=== PATIENT | male | born 1955 | race Caucasian/White ===

== ENCOUNTER → 2018-03-11 | Outpatient (CLI) | payer BC ==
[~2018-03-11] MED LIST: ADDERALL 10 MG10 MG PO; PRILOSEC 20 MG20 MG PO
[2018-03-11 10:15] VITALS: BP 121/69
[2018-03-11 11:20] VITALS: BP 120/72
== END ==
LOC: OPONC 08:00
DX: D50.9 Iron deficiency anemia, unspecified (principal)
CPT/HCPCS: 95000

== ENCOUNTER → 2018-03-13 | Outpatient (CLI) | payer BC ==
[2018-03-13 11:10] VITALS: BP 120/74
[2018-03-13 12:00] VITALS: BP 130/79
== END ==
LOC: OPONC 00:43
DX: D50.9 Iron deficiency anemia, unspecified (principal)
CPT/HCPCS: 95000

== ENCOUNTER → 2018-03-19 | Outpatient (CLI) | payer BC ==
[2018-03-19 12:10] VITALS: BP 121/73
--- NOTE | 2018-03-19 12:30 | NUR ---
PT IN FOR FINAL IRON INFUSION. REPORTS DOING WELL, TOLERATING IRON INFUSIONS WELL EXCEPT FOR HEADACHE THAT FOLLOWS INFUSION FOR A FEW HOURS. PLANS TO TAKE IBUPROFEN TODAY FOR THIS (HELD IT LAST WEEK D/T UPCOMING HAND SURGERY). REPORTS LESS CRAVINGS TO CHEW ICE SO FEELS THE IRON IS WORKING. TOLERATED TODAY'S INFUSION WELL. WILL F/U WITH DR. CHANEL FOR FUTURE MANAGEMENT.
--- NOTE | 2018-04-11 17:20 | NUR ---
LATE NOTE: PATIENT IN FOR IRON SUCROSE INFUSION ON 03/19/18. INFUSION START TIME: 1202. STOP TIME: 1230.
== END ==
LOC: OPONC 00:21
DX: D50.9 Iron deficiency anemia, unspecified (principal)
CPT/HCPCS: 95000

== ENCOUNTER → 2020-07-07 | Outpatient (CLI) | payer OTHER ==
[~2020-07-07] MED LIST changes: +FLOMAX0.4 MG PO
[2020-07-07 13:45] VITALS: BP 131/84
[2020-07-07 14:10] VITALS: BP 138/80
--- NOTE | 2020-07-07 16:17 | NUR ---
HERE FOR FIRST OF 5 DOSES OF VENOFER. STATES HAS BEEN HAVING SOME DIZZINESS AND VERTIGO FOR WHICH HE IS BEING WORKED UP FOR. HAS HAD VENOFER INFUSIONS IN THE PAST AND TOLERATED WELL. PATIENT HAS ALSO BEEN EXPERIENCING MINOR FATIGUE. IV STARTED AND VENOFER INFUSION COMPLETED WITHOUT INCIDENT. POST BP WNL. DC AMBULATORY IN STABLE CONDITION. TO RETURN ON SUNDAY FOR NEXT DOSE.
== END ==
LOC: OPONC 09:56
PROVIDERS: ATTEND Family Medicine
DX: D50.9 Iron deficiency anemia, unspecified (principal); R42 Dizziness and giddiness
CPT/HCPCS: 95000

== ENCOUNTER → 2020-07-09 | Outpatient (CLI) | payer OTHER ==
[2020-07-09 13:27] VITALS: BP 123/74
[2020-07-09 14:34] VITALS: BP 126/82
--- NOTE | 2020-07-09 14:59 | NUR ---
IN FOR 2ND OF 5 VENOFER INFUSIONS FOR IRON DEFICIENCY ANEMIA. STATED FEELING WELL TODAY. IV PLACED IN LAC AND INFUSED VENOFER FOR 1 HOUR. TOLERATED WELL. TO RETURN NEXT -- TO FINISH TOTAL OF 5 INFUSIONS. POST BP STABLE. REMOVED IV AND DISMISSED IN GOOD CONDITION.
== END ==
LOC: OPONC 09:52
PROVIDERS: ATTEND Family Medicine
DX: D50.9 Iron deficiency anemia, unspecified (principal)
CPT/HCPCS: 95000

== ENCOUNTER → 2020-07-14 | Outpatient (CLI) | payer OTHER ==
[2020-07-14 10:26] VITALS: BP 123/76
[2020-07-14 10:53] VITALS: BP 116/70
--- NOTE | 2020-07-14 11:42 | NUR ---
IN FOR A VENOFER INFUSION FOR IRON DEFICIENCY ANEMIA. STATED FEELING OK EXCEPT HAS A HEADACHE. PATIENT STATED I HAD THIS HEADACHE BEFORE I STARTED GETTING THESE IRON INFUSIONS AND I HAVE BEEN HAVING TROUBLE WITH VERTIGO. PATIENT HAD AN MRI OF THE BRAIN YESTERDAY. IV PLACED IN LEFT ARM AND INFUSED VENOFER OVER 30 MINUTES. TOLERATED WELL. REMOVED IV AND DISMISSED IN STABLE CONDITION. POST BP GOOD.
== END ==
LOC: OPONC 09:24
PROVIDERS: ATTEND Family Medicine
DX: D50.9 Iron deficiency anemia, unspecified (principal)
CPT/HCPCS: 95000

== ENCOUNTER → 2020-07-16 | Outpatient (CLI) | payer OTHER ==
[2020-07-16 13:50] VITALS: BP 142/86
[2020-07-16 14:24] VITALS: BP 120/80
--- NOTE | 2020-07-16 14:30 | NUR ---
HERE FOR HIS 4TH OF 5 VENOFER INFUSIONS. REPORTS TOLERATING EACH WELL, NO UNTOWARD REACTIONS NOTED. TOLERATED TODAY'S WITHOUT INCIDENT, NO S/S REACTION. VSS. DISMISSED IN STABLE CONDITION. SCHEDULED TO RETURN AGAIN ON SUNDAY FOR LAST INFUSION.
== END ==
LOC: OPONC 07:54
PROVIDERS: ATTEND Family Medicine
DX: D50.9 Iron deficiency anemia, unspecified (principal)
CPT/HCPCS: 95000

== ENCOUNTER → 2020-07-19 | Outpatient (CLI) | payer OTHER ==
[2020-07-19 10:40] VITALS: BP 138/80
[2020-07-19 11:10] VITALS: BP 140/76
--- NOTE | 2020-07-19 11:10 | NUR ---
HERE FOR 5TH AND FINAL VENOFER INFUSION. REPORTS HAVING TOLERATED EACH WELL AND WITHOUT NOTED SIDE EFFECTS. TOLERATED TODAY'S INFUSION WITHOUT INCIDENT. DISMISSED IN STABLE CONDITION. WILL F/U WITH HIS PCP FOR BOTH VISIT AND LABS.
== END ==
LOC: OPONC 09:32
PROVIDERS: ATTEND Family Medicine
DX: D50.9 Iron deficiency anemia, unspecified (principal)
CPT/HCPCS: 95000